=== PATIENT | female | born 1980 | race Caucasian/White ===

== ENCOUNTER 2019-10-04 00:55 | Emergency (ER) | payer BC ==
--- NOTE | 2019-10-04 01:43 | ER Document Report ---
ED Substance Abuse / Acc. OD - General Chief Complaint: Medical Clearance Stated Complaint: ALCOHOL/DEPRESSION Time Seen by Provider: 10/04/19 01:26 Notes: Patient is a 38-year-old female that comes emergency department for chief complaint of alcohol dependence. She states she called the hotline for help, she was transported to [facility] for detox, she states she was referred here for medical clearance. She states she has been drinking heavily for months now, she states that she tried stopping but started having withdrawal symptoms. She states that she is scared of what will happen to her if she does not stop drinking, she states she does not want to and she wants to be able to stop drinking. She denies SI or HI, she denies any prescribed any medications, she denies previously having gone through detox. She denies any sick symptoms including fever, vomiting, chest pain, abdominal pain. She denies recreational drugs. She denies . - Related Data Allergies/Adverse Reactions: No Known Allergies Allergy (Unverified 10/04/19 01:10) Past Medical History - General Information source: Patient - Social History Smoking Status: Current Every Day Smoker Frequency of alcohol use: Heavy Drug Abuse: Prescription drugs - pillo Lives with: Family Family History: Reviewed & Not Pertinent Patient has homicidal ideation: No Psychiatric Medical History: Reports: Hx Anxiety Surgical Hx: Negative - Immunizations Immunizations up to date: Yes Hx Diphtheria, Pertussis, Tetanus Vaccination: Yes Review of Systems - Review of Systems Constitutional: No symptoms reported EENT: No symptoms reported Cardiovascular: No symptoms reported Respiratory: No symptoms reported Gastrointestinal: No symptoms reported Genitourinary: No symptoms reported Female Genitourinary: No symptoms reported Musculoskeletal: No symptoms reported Skin: No symptoms reported Hematologic/Lymphatic: No symptoms reported Neurological/Psychological: See HPI Physical Exam - Vital signs Vitals: Temp 98.0 F 10/04/19 01:10 - Notes Notes: GENERAL: Alert, interacts well. Slightly disheveled. Smells of alcohol. HEAD: Normocephalic, atraumatic. EYES: Pupils equal, round, and reactive to light. Extraocular movements intact. Horizontal nystagmus noted ENT: Oral mucosa moist, tongue midline. Oropharynx unremarkable. Airway patent. NECK: Full range of motion. Supple. Trachea midline. No lymphadenopathy. LUNGS: Clear to auscultation bilaterally, no wheezes, rales, or rhonchi. No respiratory distress. Non-tender chest wall. HEART: Regular rate and rhythm. No murmur ABDOMEN: Soft, non-tender. Non-distended. Bowel sounds present in all 4 quadrants. GENITOURINARY: Deferred EXTREMITIES: Moves all 4 extremities spontaneously. No edema, normal radial and dorsalis pedis pulses bilaterally. No cyanosis. BACK: no cervical, thoracic, lumbar midline tenderness. No saddle anesthesia, normal distal neurovascular exam. Moves all extremities in full range of motion. NEUROLOGICAL: Alert and oriented x3. Normal speech. Cranial nerves II through XII grossly intact. Strength 5/5 in all extremities. PSYCH: Tearful but cooperative and attentive SKIN: Warm, dry, normal turgor. No rashes or lesions noted. Course - Re-evaluation Re-evalutation: Patient is slightly disheveled, tearful, has some nystagmus, smells of alcohol. However she is alert, oriented, cooperative, conversational, attentive. Patient denies SI or HI. Patient states she is simply seeking detox, she was referred here for medical clearance, she cannot go by their protocol until her alcohol level is less than 200. We will medically clear her here and if she does not require admission she will be placed in detox. CBC unremarkable, chemistry unremarkable except for mildly elevated LFTs which I suspect is from alcohol abuse. Patient has no right upper quadrant or abdominal tenderness. Urinalysis unremarkable, negative, urine drug screen shows benzodiazepines and patient states she has taken Xanax previously although it is not prescribed to her. Alcohol level is 342. Alcohol level will be time for redraw with expectation to be below 200 so she can be discharged to detox. We have already spoken to them and patient does have a waiting room. Discussed with patient, she states appreciation and agreement. - Vital Signs Vital signs: Temp Pulse Resp BP Pulse Ox 98.0 F 104 H 16 129/90 H 98 10/04/19 01:17 10/04/19 01:17 10/04/19 01:17 10/04/19 01:17 10/04/19 01:17 - Laboratory Result Diagrams: 10/04/19 02:05 10/04/19 02:05 Laboratory results interpreted by me: 10/04/19 10/04/19 02:05 02:05 MCH 33.6 H RDW 15.6 H Seg Neuts % (Manual) 28 L Lymphocytes % (Manual) 59 H Abs Neuts (Manual) 1.2 L BUN 5 L Glucose 111 H AST 121 H ALT 115 H Salicylates < 1.0 L Acetaminophen < 10 L Serum Alcohol 342 H* Discharge - Discharge Clinical Impression: Alcohol abuse Alcohol dependence Qualifiers: Substance use status: with intoxication Complication of substance-induced condition: uncomplicated Qualified Code(s): F10.220 - Alcohol dependence with intoxication, uncomplicated Condition: Stable Disposition: HOME, SELF-CARE Additional Instructions: Please proceed to [place] to undergo detox for alcohol dependence. Return to the emergency department for any concerning symptoms or something is not right. [facility] [address] [facility], [place] [address] Hours: Open 24 hours
[2019-10-04 02:52] LABS: HEMATOCRIT 42.7 % (36.0-47.0); MEAN CORPUSCULAR HEMOGLOBIN 33.6 pg (27.0-33.4); MEAN CORPUSCULAR HGB CONC 35.2 g/dL (32.0-36.0); MEAN CORPUSCULAR VOLUME 96 fl (80-97); PLATELET COUNT 252 10^3/uL (150-450); RED BLOOD COUNT 4.47 10^6/uL (3.72-5.28); RED CELL DISTRIBUTION WIDTH 15.6 % (11.5-14.0); WHITE BLOOD COUNT 4.4 10^3/uL (4.0-10.5)
[2019-10-04 03:08] LABS: ALBUMIN 3.6 g/dL (3.5-5.0); ALKALINE PHOSPHATASE 86 U/L (38-126); ANION GAP 10 (5-19); ASPARTATE AMINO TRANSFERASE 121 U/L (14-36); BILIRUBIN,TOTAL 0.4 mg/dL (0.2-1.3); BLOOD UREA NITROGEN 5 mg/dL (7-20); CALCIUM 8.4 mg/dL (8.4-10.2); CARBON DIOXIDE 29 mmol/L (22-30); CHLORIDE 101 mmol/L (98-107); GLUCOSE 111 mg/dL (75-110); POTASSIUM 3.9 mmol/L (3.6-5.0); TOTAL PROTEIN 6.3 g/dL (6.3-8.2)
[2019-10-04 03:11] LABS: ACETAMINOPHEN < 10 ug/mL (10-30); SALICYLATE < 1.0 mg/dL (2.0-20.0)
[2019-10-04 03:14] LABS: APPEARANCE,URINE CLEAR; BILIRUBIN,URINE NEGATIVE (NEGATIVE); COLOR,URINE STRAW; GLUCOSE, URINE NEGATIVE (NEGATIVE); KETONES,URINE NEGATIVE (NEGATIVE); LEUKOCYTE ESTERASE,URINE NEGATIVE (NEGATIVE); NITRITE,URINE NEGATIVE (NEGATIVE); PROTEIN,URINE NEGATIVE (NEGATIVE); URINE SPECIFIC GRAVITY 1.003; UROBILINOGEN,URINE NEGATIVE mg/dL (<2.0)
[2019-10-04 03:19] LABS: ALCOHOL 342 mg/dL (NONE DETECTED)
[2019-10-04 03:27] LABS: ABSOLUTE MONOCYTES # (MANUAL) 0.1 10^3/uL (0.1-1.4); BASOPHILS % (MANUAL) 1 % (0-2); EOSINOPHILS % (MANUAL) 0 % (0-6); LYMPHOCYTES % (MANUAL) 59 % (13-45); MONOCYTES % (MANUAL) 3 % (3-13); SEGMENTED NEUTROPHILS % (MAN) 28 % (42-78); TOTAL CELLS COUNTED 100
[2019-10-04 03:28] LABS: ANISOCYTOSIS 1+; OVALOCYTES 1+; POIKILOCYTOSIS 1+; TOXIC GRANULATION 1+; TOXIC VACUOLATION PRESENT
[2019-10-04 03:29] LABS: PLATELET COMMENT ADEQUATE
[2019-10-04 03:30] LABS: URINE AMPHETAMINES SCREEN NEGATIVE; URINE BARBITURATES SCREEN NEGATIVE; URINE COCAINE SCREEN NEGATIVE; URINE MARIJUANA (THC) SCREEN NEGATIVE; URINE METHADONE SCREEN NEGATIVE; URINE PHENCYCLIDINE SCREEN NEGATIVE
[2019-10-04 03:34] LABS: URINE BENZODIAZEPINES SCREEN UNCONFIRMED POSITIVE
--- NOTE | 2019-10-04 08:14 | EKG REPORT ---
SEVERITY:- NORMAL ECG - SINUS RHYTHM : Confirmed by: Micaela Choi MD 04-Oct-2019 08:13:14
[2019-10-04 09:48] VITALS: BP 122/63
== END 2019-10-04 09:51 | disposition home or self-care (01) ==
LOC: ER 00:55
DX: F10.220 Alcohol dependence with intoxication, uncomplicated (principal); F17.200 Nicotine dependence, unspecified, uncomplicated
CPT/HCPCS: 36415; 80053; 80307; 81001; 84703; 85025; 93005; 93010; 99283